=== PATIENT | male | born 1965 | race African-American/Black ===

== ENCOUNTER 2017-02-10 09:49 | Emergency (ER) | payer MEDICAID ==
[~2017-02-10] VITALS: Ht 182.9 cm; Wt 113.4 kg
[~2017-02-10 09:49] MED LIST: LISI-646 PO; MOTRIN PO
[2017-02-10 10:09] VITALS: BP 164/112
== END 2017-02-10 11:02 | disposition home or self-care (01) ==
LOC: ER 09:49
DX: L02.31 Cutaneous abscess of buttock (principal); J44.9 Chronic obstructive pulmonary disease, unspecified; I10 Essential (primary) hypertension
CPT/HCPCS: 10060

== ENCOUNTER 2017-02-13 08:53 | Emergency (ER) | payer MEDICAID ==
[~2017-02-13] VITALS: Ht 182.9 cm; Wt 113.4 kg
[2017-02-13 09:32] VITALS: BP 131/74
== END 2017-02-13 09:54 | disposition home or self-care (01) ==
LOC: ER 08:53
DX: L02.31 Cutaneous abscess of buttock (principal); I10 Essential (primary) hypertension; J44.9 Chronic obstructive pulmonary disease, unspecified; Z48.01 Encounter for change or removal of surgical wound dressing

== ENCOUNTER 2024-02-09 18:45 | Emergency (ER) | payer MEDICAID ==
[~2024-02-09] VITALS: Ht 182.9 cm; Wt 95.4 kg
[~2024-02-09 18:45] MED LIST changes: -LISI-646 PO; +LISI20TA56 PO
--- NOTE | 2024-02-09 19:21 | ED.PDOC ---
GI ASSESSMENT HPI Comments 59-year-old male who came to ER for abnormal lab/abdominal pain. Patient states for the past 3 days he has been experiencing epigastric abdominal pain, sharp, cramping, constant, nonradiating, associated with bouts of nausea, vomiting, and was nonbloody diarrhea. States he could not keep anything in. Patient went to [facility] earlier today, diagnostics were done, and was advised to proceed to the nearest ER since his WBC levels were elevated. Chief Complaint: Abnormal LAB's Time Seen by MD: 19:20 Primary Care Provider: Miley Reviewed Notes: Nurses Notes Allergies: Coded Allergies: NO KNOWN ALLERGIES (Unverified , 11/10/09) Home Meds Reported Medications Lisinopril (Lisinopril) 20 Mg Tab, 20 MG PO DAILY, TAB 08/26/15 [Motrin] No Conflict Check, 800 PO PRN 11/10/09 Information Source: Patient Mode of Arrival: Ambulatory Timing: Days Duration: Intermittent Prehospital treatment: None Quality: Cramping, Sharp Vomitus: Watery Stool: Loose, Watery Severity: Moderate Recent: None Recent Hx of: None Pain Location: Epigastric Modifying Factors: Nothing Associated sign and symptoms: Nausea, Vomiting, Diarrhea, Abdominal Pain Past Medical History PAST MEDICAL HISTORY: COPD, HTN Surgical History: Hernia Repair Family History Family History: Reviewed,noncontributory to illness Social History Smoker: Non-Smoker Alcohol: Denies ETOH Use Drugs: Denies Drug Use Lives In: Home Constitutional: denies: chills, diaphoresis, fatigue, fever, malaise, sweats, weakness, others EENTM: denies: blurred vision, double vision, ear bleeding, ear discharge, ear drainage, ear pain, ear ringing, eye pain, eye redness, hearing loss, mouth pain, mouth swelling, nasal discharge, nose bleeding, nose congestion, nose pain, photophobia, tearing, throat pain, throat swelling, voice changes, others Respiratory: denies: cough, hemoptysis, orthopnea, SOB at rest, shortness of breath, SOB with excertion, stridor, wheezing, others Cardiovascular: denies: chest pain, dizzy spells, diaphoresis, Dyspnea on exertion, edema, irregular heart beat, left arm pain, lightheadedness, palpitations, PND, syncope, others Gastrointestinal: reports: abdominal pain, diarrhea, nausea, vomiting; denies: abdomen distended, blood streaked bowels, constipated, dysphagia, difficulty swallowing, hematemesis, melena, poor appetite, poor fluid intake, rectal bleeding, rectal pain, others Genitourinary: denies: burning, dysuria, flank pain, frequency, hematuria, incontinence, penile discharge, penile sore, pain, testicle pain, testicle swelling, urgency, others Neurological: denies: dizziness, fainting, headache, left sided numbness, left sided weakness, numbness, paresthesia, pre-existing deficit, right sided numbness, right sided weakness, seizure, speech problems, tingling, tremors, weakness, others Musculoskeletal: denies: back pain, gout, joint pain, joint swelling, muscle pain, muscle stiffness, neck pain, others Integumetry: denies: bruises, change in color, change in hair/nails, dryness, laceration, lesions, lumps, rash, wounds, others Allergic/Immunocompromised: denies: Difficulty Healing, Frequent Infections, Hives, Itching, others Hematologic/Lymphatic: denies: anemia, blood clots, easy bleeding, easy bruising, swollen glands, others Endocrine: denies: excessive hunger, excessive sweating, excessive thirst, excessive urination, flushing, intolerance to cold, intolerance to heat, unexplained weight gain, unexplained weight loss, others Psychiatric: denies: anxiety, bipolar disorder, depression, hopeless, panic dis order, schizophrenia, sleepless, suicidal, others Physical Exam General Appearance: No Apparent Distress, Normal HEENT: Normal ENT Inspection, Pharynx Normal, TMs Normal Neck: Full Range of Motion, Non-Tender, Normal, Normal Inspection Respiratory: Chest Non-Tender, Lungs Clear, No Accessory Muscle Use, No Respiratory Distress, Normal Breath Sounds Cardiovascular: No Edema, No JVD, No Murmur, No Gallop, Normal Peripheral Pulses, Regular Rate/Rhythm Breast Exam: Deferred Gastrointestinal: Epigastric, No Organomegaly, No Pulsatile Mass, Normal Bowel Sounds, Soft, Tenderness Genitalia: Deferred Pelvic: Deferred Rectal: Deferred Extremities: No calf tenderness, Normal capillary refill, Normal inspection, Normal range of motion, Non-tender, No pedal edema Musculoskeletal : Apperance: Normal Neurologic: Alert, director cardiology II-XII nml as Tested, No Motor Deficits, Normal Affect, Normal Mood, No Sensory Deficits Cerebellar Function: Normal Reflexes: Normal Skin: Dry, Normal Color, Warm Lymphatic: No Adenopathy Was a procedure done? Was a procedure done?: No GI differential Dx Differential Diagnosis: Diverticular disease, Gastritis/PUD, Gastroenteritis, Pancreatitis, UTI, Urolithiasis, Dehydration X-Ray, Labs, Meds, VS Vital Signs Date Time Temp Pulse Resp B/P (MAP) Pulse Ox O2 Delivery O2 Flow Rate FiO2 02/09/24 21:55 58 16 95 Room Air* 0 21 02/09/24 20:09 98.4 58 18 128/95 (106) 95 98.4 02/09/24 18:53 99.2 98 16 151/88 (109) 97 Lab Test 02/09/24 20:00 02/09/24 19:21 Range/Units Urine Color Light-orange Yellow Urine Clarity Clear Clear Urine pH 6.0 5.0-9.0 Urine Specific [place] 1.029 1.001-1.035 Urine Protein 1+ H Negative Urine Ketones Trace Negative Urine Blood Negative Negative /uL Urine Nitrite Negative Negative Urine Bilirubin Negative Negative Urine Urobilinogen 4 H Negative mg/dL Urine Leukocyte Esterase Trace Negative /uL Urine RBC 2 0 - 3 /hpf Urine WBC 7 0 - 3 /hpf Urine Squamous Epithelial Cells Few <5 /hpf Urine Bacteria None seen None Seen /hpf Urine Mucus Few None Seen Urine Glucose Normal Normal mg/dL White Blood Count 18.3 H 4.4-10.8 10^3/uL Red Blood Count 5.13 4.5-5.90 10^6/uL Hemoglobin 17.8 H 13.5-17.5 g/dL Hematocrit 52.3 41.0-53.0 % Mean Corpuscular Volume 101.9 H 80.0-100.0 fL Mean Corpuscular Hemoglobin 34.6 H 28.0-32.0 pg Mean Corpuscular Hemoglobin Concent 34.0 32.0-36.0 g/dL Red Cell Distribution Width 15.3 H 11.8-14.3 % Platelet Count 152 140-450 10^3/uL Mean Platelet Volume 10.4 6.9-10.8 fL Neutrophils (%) (Auto) 77.9 37.0-80.0 % Lymphocytes (%) (Auto) 13.9 10.0-50.0 % Monocytes (%) (Auto) 7.8 0.0-12.0 % Eosinophils (%) (Auto) 0.2 0.0-7.0 % Basophils (%) (Auto) 0.2 0.0-2.0 % Neutrophils # (Auto) 14.3 H 1.6-8.6 10 ^3/uL Lymphocytes # (Auto) 2.5 0.4-5.4 10 ^3/uL Monocytes # (Auto) 1.4 H 0-1.3 10 ^3/uL Eosinophils # (Auto) 0 0-0.8 10 ^3/uL Basophils # (Auto) 0 0-0.2 10 ^3/uL Nucleated Red Blood Cells 0.0 % Sodium Level 139 136-145 mmol/L Potassium Level 3.7 3.5-5.1 mmol/L Chloride Level 105 98-107 mmol/L Carbon Dioxide Level 26 20-31 mmol/L Anion Gap 8 5-15 Blood Urea Nitrogen 7 L 9-23 mg/dL Creatinine 0.86 0.700-1.30 mg/dL Glomerular Filtration Rate Calc 100 >90 mL/min BUN/Creatinine Ratio 8.1 L 10.0-20.0 Serum Glucose 103 74-106 mg/dL Calcium Level 10.1 8.7-10.4 mg/dL Total Bilirubin 4.8 H 0.2-1.0 mg/dL Aspartate Amino Transferase (AST) 11 L 13-40 U/L Alanine Aminotransferase (ALT) 10 7-40 U/L Alkaline Phosphatase 75 46-116 U/L Total Protein 7.9 5.7-8.2 g/dL Albumin 4.6 3.2-4.8 g/dL Lipase 57 H 12-53 U/L Current Medications Medications (Trade) Dose Ordered Sig/Kirsten Route Start Time Stop Time Status Last Admin Sodium Chloride 1,000 ml @ 1,000 mls/hr Q1H ONCE IV 02/09/24 19:00 02/09/24 19:59 DC 02/09/24 20:05 Ondansetron HCl (Zofran) 4 mg ONCE ONCE IV 02/09/24 19:00 02/09/24 19:01 DC 02/09/24 20:14 Famotidine (Pepcid Injection) 20 mg ONCE ONCE IV 02/09/24 19:00 02/09/24 19:01 DC 02/09/24 20:14 Ketorolac Tromethamine (Toradol Injection) 15 mg ONCE ONCE IV 02/09/24 19:00 02/09/24 19:01 DC 02/09/24 20:14 Time of 1ST Reevaluation: 19:18 Reevaluation 1ST: Unchanged Patient Education/Counseling: Diagnosis, Treatment Family Education/Counseling: No Family Present Departure 1 Departure Time of Disposition: 22:02 ([place] Authorization [id number] with [place] doctor who we will ensure follow up regarding possible cancer on CT scan and aneurysm.Patient likely with gastroenteritis and will discharge home with outpatient follow up.) Impression: Primary Impression: Gastroenteritis Additional Impressions: Sigmoid thickening Abdominal aneurysm Disposition: HOME / SELF CARE / HOMELESS Condition: Stable Additional Instructions: You likely have gastroenteritis. It is important to stay well hydrated and well rested. This usually resolves within 1 week. You also have inflammation of your colon, kidneys, prostate, and liver. If your symptoms worsen or you have any other concerns please return to the ER. Discharged With: Self Critical Care Note Critical Care Time?: No Stability Stability form required: No Heart Score Heart Score: Heart Score Response (Comments) Value History N/A 0 EKG N/A 0 Age N/A 0 Risk Factors N/A 0 Troponin N/A 0 Total 0 I personally scribed for ROGERIO MAJOR MD ([email or web address]) on 02/09/24 at 19:21. Electronically submitted by Sav Rausch ([email or web address]). ROGERIO MAJOR MD Feb 09, 2024 19:21
[2024-02-09 19:55] LABS: Basophils # (auto) 0 10 ^3/uL (0-0.2); Basophils % (auto) 0.2 % (0.0-2.0); Eosinophils # (auto) 0 10 ^3/uL (0-0.8); Eosinophils % (auto) 0.2 % (0.0-7.0); Hematocrit 52.3 % (41.0-53.0); Hemoglobin 17.8 g/dL (13.5-17.5); Lymphocytes # (auto) 2.5 10 ^3/uL (0.4-5.4); Lymphocytes % (auto) 13.9 % (10.0-50.0); Mean Corpuscular Hemoglobin 34.6 pg (28.0-32.0); Mean Corpuscular Volume 101.9 fL (80.0-100.0); Monocytes # (auto) 1.4 10 ^3/uL (0-1.3); Monocytes % (auto) 7.8 % (0.0-12.0); Neutrophils # (auto) 14.3 10 ^3/uL (1.6-8.6); Neutrophils % (auto) 77.9 % (37.0-80.0); Platelet Count (auto) 152 10^3/uL (140-450); Red Blood Cells 5.13 10^6/uL (4.5-5.90); Red Cell Distribution Width 15.3 % (11.8-14.3); White Blood Cell 18.3 10^3/uL (4.4-10.8)
[2024-02-09] MEDS: SODIUM CHLORIDE 0.9% 1,000 ML IV ONE (20:05)
[2024-02-09 20:09] VITALS: TEMP 98.4
[2024-02-09 20:14] LABS: Alanine Aminotransferase 10 U/L (7-40); Albumin 4.6 g/dL (3.2-4.8); Alkaline Phosphatase 75 U/L (46-116); Anion Gap 8 (5-15); Aspartate Aminotransferase 11 U/L (13-40); BUN/Creatinine Ratio 8.1 (10.0-20.0); Bilirubin, Total 4.8 mg/dL (0.2-1.0); Blood Urea Nitrogen 7 mg/dL (9-23); Calcium 10.1 mg/dL (8.7-10.4); Carbon Dioxide 26 mmol/L (20-31); Chloride 105 mmol/L (98-107); Glucose 103 mg/dL (74-106); Lipase 57 U/L (12-53); Potassium 3.7 mmol/L (3.5-5.1); Sodium 139 mmol/L (136-145); Total Protein 7.9 g/dL (5.7-8.2)
[2024-02-09] MEDS: KETOROLAC TROMETH 30 MG/ML 1ML VIAL IV ONE (20:14)
[2024-02-09] MEDS: ONDANSETRON HCL 4 MG/2 ML VIAL IV ONE (20:14)
[2024-02-09] MEDS: FAMOTIDINE (10MG/ML) 2ML VL IV ONE (20:14)
[2024-02-09] MEDS: IOHEXOL 300 MG/ML 100ML BOTTLE IJ ONE (20:35)
--- NOTE | 2024-02-09 20:53 | DVH ---
Exam: CT CT AB PEL WITH IV CON ONLY History: lower abdominal pain Comparison Study: None available at time of dictation. TECHNIQUE: Multidetector CT of the abdomen and pelvis with contrast. Axial, coronal and sagittal mult iplanar reformats were obtained from the axial data set by the technologist. Radiation Dose Information: CT Dose: CTDI volume is 16.14 mGy. Dose-length product is 995.68 mGy*cm FINDINGS: Bibasilar atelectasis. 0.6 cm right middle lobe solid nodule. Partially visualized heart is unremarka ble. Mild hepatomegaly with hepatic steatosis. 1.2 cm right hepatic lobe cyst. Additional subcentimeter bi lateral hepatic lesions are noted that are too small to characterize. Possible sludge within the gall bladder. Otherwise, gallbladder, spleen, pancreas and adrenal glands are unremarkable. Subcentimeter hypodense bilateral renal lesions that are too small to characterize. No hydronephrosis bilaterally. Mild wall thickening of the urinary bladder with minimal adjacent fat stranding. Prosta te measures 4.2 x 6 by 4.7 cm. Mild wall thickening of the stomach and proximal small bowel loops the mid and distal small bowel loo ps unremarkable. Appendix is unremarkable. Scattered colonic diverticulosis . There is irregular wall thickening of the sigmoid. With minimal adjacent fat stranding. No evidence of intraperitoneal free air or free fluid. [id number] atherosclerotic calcification of the aorta and bilateral iliacs. Aneurysmal dilatati on of the infrarenal aorta up to 2.8 cm with aneurysmal dilatation of the right common iliac artery u p to 2.5 cm. No dissection. No significant lymphadenopathy. Mild diastasis recti. The soft tissues unremarkable. No destructive osseous lesions are noted. IMPRESSION: Irregular wall thickening of the sigmoid concerning for neoplasm with sigmoiditis thought less likely . Wall thickening of the urinary bladder with adjacent fat stranding. Correlate for cystitis. Wall thickening of the stomach and proximal small bowel loops. Correlate for gastroenteritis. Scattered colonic diverticulosis without diverticulitis. Aneurysmal dilatation of the infrarenal aorta up to 2.8 cm with aneurysmal dilatation of the right co mmon iliac artery up to 2.5 cm. Enlarged prostate. Recommend correlation with PSA. Small hepatic cyst with additional subcentimeter hepatic lesions that are too small to characterize. Sub cm hypodense bilateral renal lesions that are too small to characterize. 0.6 cm right middle lobe solid nodule. Recommend follow-up per fleischner criteria and CT chest for further evaluation.
[2024-02-09 21:31] LABS: Urine Bacteria None Seen /hpf (None Seen)
[2024-02-09 21:43] LABS: Urine Blood Negative /uL (Negative); Urine Clarity Clear (Clear); Urine Color Light-Orange (Yellow); Urine Mucus FEW (None Seen); Urine Protein, UAD 1+ (Negative); Urine Specific Gravity 1.029 (1.001-1.035); Urine Urobilinogen 4 mg/dL (Negative); Urine WBC 7 /hpf (0 - 3)
[2024-02-09 21:55] VITALS: PULSE 58; RESP 16; O2SAT 95
[2024-02-09 22:25] VITALS: BP 135/94; PULSE 67; RESP 16; O2SAT 96
== END 2024-02-09 22:27 | disposition home or self-care (01) ==
LOC: ER 18:54
DX: K52.9 Noninfective gastroenteritis and colitis, unspecified (principal); I71.40 Abdominal aortic aneurysm, without rupture, unspecified; J44.9 Chronic obstructive pulmonary disease, unspecified; I10 Essential (primary) hypertension; Z98.890 Other specified postprocedural states
CPT/HCPCS: 36415; 74177; 80053; 81001; 83690; 85025; 96361; 96374; 96375; 99285; J1885; J2405; J3490; J7030; Q9967